=== PATIENT | female | born 1950 | race Caucasian/White ===

== ENCOUNTER → 2017-04-29 | Outpatient (CLI) | payer OTHER ==
--- NOTE | 2017-04-30 08:40 | REP ---
PET/CT: History: Diagnosing pulmonary nodule. Comparisons: Comparison chest CT January 27, 2017 from [facility]. TECHNIQUE: 1 hour 13 minutes following the intravenous injection of a 8.9 mCi dose of F-18 FDG, three-dimensional PET scintigraphy is acquired from the skull base to the proximal thighs. Triplanar noncontrast CT scanning is acquired through the same anatomic range for attenuation correction, and image registration with scan parameters optimized to minimize radiation exposure to the patient. PET scintigraphy and CT datasets were fused and displayed on a workstation with multiplanar and projection display capability. PET/CT Findings: There are extensive scattered foci of hypermetabolic uptake throughout the right chest with a few scattered nodular foci of hypermetabolic uptake in the left lung. The known large cavitary lesion in the right upper lobe distribution has hypermetabolic uptake around its periphery. Maximum standard uptake value ranging up to 5. There is new parenchymal opacification or infiltrate in the right lower lobe distribution posteriorly which shows mottled pattern of hypermetabolic uptake as well. This is a little more avid with maximum standard uptake value ranging up to 8.4. There are numerous bilateral pulmonary hypermetabolic nodules. One in the right lower lobe has maximum standard uptake value of 7.2. There are two somewhat spiculated nodules in the left lower lobe posteriorly which are hypermetabolic. Maximum standard uptake value in these is 3.8. There is uptake adjacent to the mediastinum in the right lower lobe but no definite hilar or mediastinal jovanna hypermetabolic uptake is seen. Severe COPD changes are noted along with cavitary opacification in the right upper lobe and extensive infiltrate in the right lower lobe with multiple pulmonary nodules again noted. No abnormal skeletal hypermetabolic uptake is seen. No abnormal adrenal uptake is seen. The head and neck soft tissues are unremarkable. No abnormal abdominal or pelvic hypermetabolic uptake is seen. There are multiple intrarenal calculi in the kidneys. There is a cyst in the left kidney. Impression: Extensive bilateral hypermetabolic infiltrates, cavitary lesions, and scattered bilateral pulmonary nodules in the right and to a lesser extent left thorax. Differential possibilities include tuberculosis and invasive fungal disease as well as metastatic pulmonary malignancy. There is no abnormal hypermetabolic uptake noted outside of the chest. Signed by Arnulfo Reilly MD 04/30/2017 04:04 P
== END ==
LOC: M PLARAD 13:13
PROVIDERS: ATTEND Family Medicine
DX: R91.1 Solitary pulmonary nodule (principal); R91.8 Other nonspecific abnormal finding of lung field

== ENCOUNTER → 2017-06-23 | Outpatient (REF) | payer OTHER ==
[2017-06-23 11:45] LABS: ALBUMIN 2.6 GM/DL (3.2-5.2); ALBUMIN/GLOBULIN RATIO 0.65 (1.00-1.93); ALKALINE PHOSPHATASE 85 U/L (45-117); ALT/SGPT 11 U/L (12-78); ANION GAP 11 MEQ/L (8-16); AST/SGOT 10 U/L (15-37); BILIRUBIN,TOTAL 0.3 MG/DL (0.2-1.0); BLOOD UREA NITROGEN 12 MG/DL (7-18); CALCIUM LEVEL 9.8 MG/DL (8.8-10.2); CARBON DIOXIDE LEVEL 30 MEQ/L (21-32); CHLORIDE LEVEL 100 MEQ/L (98-107); CREATININE FOR GFR 0.45 MG/DL (0.55-1.02); FREE T4 1.31 NG/DL (0.76-1.46); GLOMERULAR FILTRATION RATE > 60.0 (>45); GLUCOSE, FASTING 84 MG/DL (80-110); IMMUNOGLOBULIN G 1020 MG/DL (681-1648); IMMUNOGLOBULIN M 55.8 MG/DL (40-230); POTASSIUM SERUM 3.6 MEQ/L (3.5-5.1); SODIUM LEVEL 141 MEQ/L (136-145); THEOPHYLLINE LEVEL 15.3 UG/ML (10.0-20.0); TOTAL PROTEIN 6.6 GM/DL (6.4-8.2)
[2017-06-25 00:06] LABS: %CD3+CD4+CD8+ 2.8 % (Not Estab.); %CD3+CD4+CD8- 41.9 % (Not Estab.); %CD3+CD4-CD8+ 15.2 % (Not Estab.); %CD3+CD4-CD8- 0.5 % (Not Estab.); ABS CD3+CD4+CD8+ 17 /uL (Not Estab.); ABS CD3+CD4+CD8- 251 /uL (Not Estab.); ABS CD3+CD4-CD8+ 91 /uL (Not Estab.); ABS CD3+CD4-CD8- 3 /uL (Not Estab.); CD4/CD8 NYSDOH RATIO 2.76 (Not Estab.); Eosinophils 0 % (.); HCT 38.9 % (34.0-46.6); HGB 12.1 g/dL (11.1-15.9); Monocytes 3 % (.); Neutrophils 93 % (.); WBC 14.2 x10E3/uL (3.4-10.8)
[2017-06-25 08:07] LABS: IgG SERUM (part of Subclasses) 975 mg/dL (700-1600); IgG Subclass 1 671 mg/dL (248-810); IgG Subclass 2 192 mg/dL (130-555); IgG Subclass 3 95 mg/dL (15-102); IgG Subclass 4 6 mg/dL (2-96)
== END ==
LOC: M SFHCPLAZ 09:52
PROVIDERS: ATTEND Internal Medicine Infectious Disease
DX: A31.0 Pulmonary mycobacterial infection (principal); R64 Cachexia; J44.9 Chronic obstructive pulmonary disease, unspecified

== ENCOUNTER → 2017-08-06 | Outpatient (REF) | payer OTHER ==
[2017-08-06 13:22] LABS: BASO % 0.2 % (0.0-1.0); EOS % 0.1 % (0.0-3.0); IMMATURE GRANULOCYTE % 0.5 % (0-0); LYMPH # 0.3 10^3/uL (1.5-4.5); LYMPH % 1.9 % (24.0-44.0); MEAN CORPUSCULAR HGB CONC 29.8 g/dl (32.0-36.5); MEAN CORPUSCULAR VOLUME 80.4 fl (80.0-96.0); MONO # 0.5 10^3/uL (0.0-0.8); MONO % 2.9 % (0.0-5.0); NEUTROPHILS # 16.5 10^3/uL (1.8-7.7); NEUTROPHILS % 94.4 % (36.0-66.0); PLATELET COUNT, AUTOMATED 508 10^3/uL (150-450); RED CELL DISTRIBUTION WIDTH 15.6 % (11.5-14.5); WHITE BLOOD COUNT 17.5 10^3/uL (4.0-10.0)
[2017-08-06 14:07] LABS: ALBUMIN 2.7 GM/DL (3.2-5.2); ALBUMIN/GLOBULIN RATIO 0.59 (1.00-1.93); ALKALINE PHOSPHATASE 86 U/L (45-117); ALT/SGPT 10 U/L (12-78); ANION GAP 11 MEQ/L (8-16); AST/SGOT 15 U/L (15-37); BILIRUBIN,TOTAL 0.3 MG/DL (0.2-1.0); BLOOD UREA NITROGEN 11 MG/DL (7-18); CALCIUM LEVEL 9.2 MG/DL (8.8-10.2); CARBON DIOXIDE LEVEL 29 MEQ/L (21-32); CHLORIDE LEVEL 97 MEQ/L (98-107); CREATININE FOR GFR 0.46 MG/DL (0.55-1.02); GLOMERULAR FILTRATION RATE > 60.0 (>45); GLUCOSE, FASTING 104 MG/DL (80-110); POTASSIUM SERUM 4.2 MEQ/L (3.5-5.1); SODIUM LEVEL 137 MEQ/L (136-145); TOTAL PROTEIN 7.3 GM/DL (6.4-8.2)
== END ==
LOC: M SFHCPLAZ 10:47
PROVIDERS: ATTEND Internal Medicine Infectious Disease
DX: A31.0 Pulmonary mycobacterial infection (principal)

== ENCOUNTER 2017-09-15 12:51 | Inpatient (IN) | payer OTHER ==
[~2017-09-15] VITALS: Ht 154.9 cm; Wt 29.7 kg
[2017-09-15 14:06] LABS: BASO % 0.1 % (0.0-1.0); IMMATURE GRANULOCYTE % 0.4 % (0-0); LYMPH % 1.1 % (24.0-44.0); MEAN CORPUSCULAR HEMOGLOBIN 25.4 pg (27.0-33.0); MEAN CORPUSCULAR HGB CONC 31.2 g/dl (32.0-36.5); MEAN CORPUSCULAR VOLUME 81.5 fl (80.0-96.0); MONO # 0.5 10^3/uL (0.0-0.8); MONO % 2.9 % (0.0-5.0); NEUTROPHILS # 16.3 10^3/uL (1.8-7.7); NEUTROPHILS % 95.5 % (36.0-66.0); PLATELET COUNT, AUTOMATED 419 10^3/uL (150-450); RED CELL DISTRIBUTION WIDTH 18.1 % (11.5-14.5); WHITE BLOOD COUNT 17.1 10^3/uL (4.0-10.0)
[2017-09-15 14:27] LABS: LYMPH # 0.2 10^3/uL (1.5-4.5); POSITIVE DIFF POS FLAG
--- NOTE | 2017-09-15 14:34 | REP ---
AP PORTABLE CHEST: 09/15/2017 COMPARISON: 08/26/2017, 08/17/2017, 06/19/2017, 03/16/2017, CT chest 05/10/2017, PET CT 04/29/2017. CLINICAL HISTORY: Dyspnea and cough. FINDINGS: Lungs are severely hyperinflated with bullous emphysematous changes. Cavities in the right upper lung zone with much less consolidative opacity than on the CT chest in April. There have been improvements in these cavitary lesions with clearing of the infiltrates and fluid within many of the cavities. Some airspace opacity left mid lung zone and extensive scarring to the right hilum. I do not see definite effusion. There is some scarring in the left CP angle and both bases. Heart unchanged. The aorta is calcified at the arch, mildly tortuous but without aneurysm. Airway midline. IMPRESSION: 1. Diffuse severe COPD with fibrosis, emphysematous changes with bullous changes in both upper lung zones, along with right upper lobe cavitary lesions which have shown much improvement over the last 4 months but still with thickening of morales of many of these lesions in the right upper lobe. No effusion, cardiomegaly or edema. 2. Tortuous calcified aorta without aneurysm and a dextrorotatory curvature in the thoracic spine. Bones demineralized. 3. Heavier fibrotic changes and stranding towards the right hilum and left perihilar patchy density unchanged from multiple prior studies representing some significant scarring. Signed by Srinivas Salazar MD 09/15/2017 08:31 P
[2017-09-15 14:36] LABS: ANION GAP 6 MEQ/L (8-16); BLOOD UREA NITROGEN 15 MG/DL (7-18); CALCIUM LEVEL 8.9 MG/DL (8.8-10.2); CARBON DIOXIDE LEVEL 33 MEQ/L (21-32); CHLORIDE LEVEL 100 MEQ/L (98-107); CREATININE FOR GFR 0.52 MG/DL (0.55-1.02); GLOMERULAR FILTRATION RATE > 60.0 (>45); GLUCOSE, FASTING 98 MG/DL (80-110); SODIUM LEVEL 139 MEQ/L (136-145)
[2017-09-15] MEDS ORDERED: PERCOCET 5MG/325MG TAB PO ONE (15:15)
[2017-09-15] MEDS ORDERED: NS 500 ML IV ONE ×2 (15:15→17:00)
[2017-09-15] MEDS ORDERED: IPRATROPIUM 0.5MG/ALBUTEROL 2.5MG INH SOL UD 3ML (DUONEB)(J7620) NEB ONE (15:30)
[2017-09-15] MEDS ORDERED: ISOVUE-370 76% 100ML VIAL (Q9967) As Ordered ONE (15:36)
[2017-09-15 15:53] LABS: ABG BASE EXCESS 5.9 (-2.0-2.0); ABG HCO3 30.1 MEQ/L (22.0-26.0); ABG PARTIAL PRESSURE CO2 42.2 mmHg (35.0-45.0); ABG PARTIAL PRESSURE O2 101.1 mmHg (75.0-100.0); ABG STANDARD HCO3 29.8 MEQ/L (22.0-26.0); ABG TOTAL CO2 31.4 MEQ/L (23.0-31.0); ABG pH (ARTERIAL) 7.471 UNITS (7.350-7.450)
--- NOTE | 2017-09-15 16:26 | REP ---
CT Head without contrast HISTORY: Fall COMPARISON: None There is no intraparenchymal hemorrhage, acute infarct, mass or midline shift. The ventricular system and cortical sulci are dilated consistent with minimal volume loss. There is no extra cerebral collection. There is no fracture. A millimeter defect is present in the right parietal bone. This most likely represents a venous canchola. The visualized sinuses are clear. IMPRESSION: Minimal volume loss. Signed by Noe Michelle MD 09/15/2017 04:17 P
--- NOTE | 2017-09-15 16:38 | REP ---
RIGHT FOOT, FOUR VIEWS: HISTORY: Pain. There is no acute fracture or dislocation. The joint spaces are normal in appearance. An osteophyte is present on the posterior calcaneus. IMPRESSION: There is no acute fracture or dislocation. Signed by Noe Michelle MD 09/15/2017 04:49 P
--- NOTE | 2017-09-15 16:51 | REP ---
HISTORY: Dyspnea. COMPARISON: Multiple, the latest 05/10/2017, a noncontrast enhanced examination from [facility]. CONTRAST: 100 mL of Isovue-370 There is no significant change in the appearance of the mediastinum or pulmonary vj. No mass or adenopathy has developed, however, there is a stable borderline left suprahilar lymph node. It is better imaged on today's contrast enhanced examination compared to the latest prior noncontrast enhanced examination. There are no pleural or pericardial effusions. There is no significant change in the appearance of the imaged upper abdomen. There are bilateral nephroliths seen in conjunction with bilateral extrarenal pelves. There is further abdominal imaging on today's chest CT compared to the latest prior which shows an unchanged left renal cyst but evidence of mild right-sided hydronephrosis. The renal cyst is unchanged compared to 12/22/[address] from [facility], and the right-sided hydronephrosis has developed since that last exam as well. The imaged osseous structures are within normal limits. Evaluation of the lung shah again shows advanced bullous emphysematous changes with lung field hyperexpansion and scattered asymmetric densities. The area of consolidation seen previously in the right lower lobe with cavitation has improved, however, there is an area of asymmetric density with cavitation seen in the apical posterior segment of the left upper lobe which has increased in size and now measuring approximately 3 cm, previously 1.5. Increased asymmetric densities are also now seen in the left lower lobe. Of note is a conglomerate area measuring approximately 4.9 x 3 cm. IMPRESSION: 1. Advanced bullous emphysematous changes as described above and seen with waxing and waning areas of asymmetric density, consolidation, and cavitation. Neoplastic versus infectious etiology which needs to be correlated clinically with close followup, with particular attention drawn to the left lower lobe findings. 2. Imaged upper abdomen findings as described above. Mild right-sided hydronephrosis and partially imaged on this chest CT of uncertain etiology. The abdomen CT of 05/10/2017 was also reviewed and the findings of today represent a change from that prior exam as well, particularly involving the right sided hydronephrosis. 3. Other findings as described above. Signed by Harsh Meng DO 09/15/2017 04:58 P
[2017-09-15] MEDS ORDERED: LevoFLOXacin IV 500 MG in APPROPRIATE DILUENT 1 EA IV ONE (17:00)
[2017-09-15] MEDS ORDERED: NICOTINE 21MG/24HR 1 EA TRANSDERMAL TD ONE (17:45)
[2017-09-15] MEDS ORDERED: CLOT10TR MT (17:49)
[2017-09-15] MEDS ORDERED: COLA100C5 PO (17:49)
[2017-09-15] MEDS ORDERED: ETHA1TAB2 PO (17:49)
[2017-09-15] MEDS ORDERED: MEGE400SUS PO (17:49)
[2017-09-15] MEDS ORDERED: INCR1INH INH (17:49)
[2017-09-15] MEDS ORDERED: VENTAER INH (17:49)
[2017-09-15] MEDS ORDERED: ALEN70TA39 PO (17:49)
[2017-09-15] MEDS ORDERED: OXYC1TAB23 PO (17:49)
[2017-09-15] MEDS ORDERED: BREO1INH3 INH (17:49)
[2017-09-15] MEDS ORDERED: IPRASOL4 INH (17:49)
[2017-09-15] MEDS ORDERED: FLON1SPR (17:49)
[2017-09-15] MEDS ORDERED: LORA10TA2 PO (17:49)
[2017-09-15] MEDS ORDERED: PRED10TA2 PO (17:49)
[2017-09-15] MEDS ORDERED: OXYB5TAB10 PO (17:49)
[2017-09-15] MEDS ORDERED: RIFA300C3 PO (17:49)
[2017-09-15] MEDS ORDERED: ONDA4TAB6 SL (17:49)
[2017-09-15] MEDS ORDERED: THEO1TAB4 PO (17:49)
[2017-09-15] MEDS ORDERED: OMEP40CA2 PO (17:49)
[2017-09-15] MEDS ORDERED: FLUTICASONE PROP 0.05% NASAL SPRAY 16 GM (FLONASE) PRN (19:15)
[2017-09-15 20:00] VITALS: BP 154/85
--- NOTE | 2017-09-15 20:39 | HPEPDOC ---
[facility] Medical History & Physical Date of Admission Sep 15, 2017 Primary Care Physician: A Other Provider PCP: Dr. Infante ([place]) Infectious Diseases: Dr. Blunt Pulmonology: Dr. Frazier Urology: Dr. Lazcano Attending Physician: RAY GRANT MD History and Physical CODE STATUS: Full Code according to patient CHIEF COMPLAINT: [Increasing shortness of breath] HISTORY OF PRESENT ILLNESS: [66-year-old female seen in the emergency department today for increasing shortness of breath for the last 2-3 weeks felt that she is been sick with little to no improvement. She has had fevers, chills and rigors at home. She is also had productive sputum with cough. No hemoptysis. She relates having dyspnea on exertion with the slightest activity. He sees Dr. Blunt and Dr. Frazier for her recent MAC pneumonia. And tonight she feels that due to her weakness and increased shortness of breath, productive sputum, chest congestion. She did not feel that she could return home from the emergency department. Therefore, hospitalist was called for admission. Additionally, she has had a couple mechanical falls due to her shortness of breath and lightheadedness without loss of consciousness. PET scan and April 2017: Extensive bilateral hypermetabolic infiltrates, cavitary lesions, and scattered bilateral pulmonary nodules in the right and to a lesser extent left thorax. Differential possibilities include tuberculosis and invasive fungal disease as well as metastatic pulmonary malignancy. There is no abnormal hypermetabolic uptake noted outside of the chest.] PAST MEDICAL HISTORY: DIVERTICULITIS COPD/ASTHMA GERD HTN RECURRENT NEPHROLITHIASIS HISTORY OF OBSTRUCTIVE SLEEP APNEA OSTEOPOROSIS WITH COMPRESSION FRACTURES TOBACCO ABUSE MYCOBACTERIUM AVIUM COMPLEX CT FINDINGS WITH MULTIPLE PULMONARY NODULES AND CAVITARY LESION SCAN -04/2017 PAST SURGICAL HISTORY: MULTIPLE ESWL'S TUBAL LIGATION X3 SOCIAL HISTORY: Currently smokes 6-10 cigarettes per day for many years. Has been counseled to d /c smoking. Denies current EtOH use or IVDU. No recent travel or sick contacts. FAMILY HISTORY: FATHER: , HEART FAILURE MOTHER: , COPD 3 BROTHER(S) , 4 SISTER(S) - HEALTHY. 2 SON(S) , 2 DAUGHTER(S) - HEALTHY. STRONG FAMILY HX KIDNEY STONES.NO KNOWN HISTORY OF UROLOGICALLY RELATED CANCERS. ALLERGIES: Please see below. REVIEW OF SYSTEMS: CONSTITUTIONAL: [place] for fevers, chills and rigors. Decreased appetite and noted weakness with questionable weight loss. HEENT: No headache, lightheadedness, blurred or loss of vision. No difficulty with speech or swallow. CARDIOVASCULAR: No chest pain, palpitations, paroxysmal nocturnal dyspnea or lower extremity edema RESPIRATORY: Productive cough/sputum with wheeze and increased shortness of breath. She denies Hemoptysis GENITOURINARY: No dysuria, frequency, or discharge MUSCULOSKELETAL: Generalized weakness with no bone, muscle or joint pain. GASTROINTESTINAL: No Nausea, vomiting. Bowel movements are regular without hematochezia or melena. No bladder or bowel incontinence. SKIN: No complaint of lesions, abrasions or rashes NEUROLOGICAL: No blurred vision, headaches, paraesthesias or paralysis PSYCHIATRIC: No depression, anxiety, audiovisual hallucinations. No suicidal ideations. ENDOCRINE: Denies history of diabetes or thyroid disorder. No history of endocrine abnormalities. HEMATOLOGIC/LYMPHATIC: No lumps, bumps or swelling of neck, axilla or groin. No night sweats or weight loss. HOME MEDICATIONS: Please see below. PHYSICAL EXAMINATION: VITAL SIGNS: Please see below. GENERAL: NAD, A&OX3, Pleasant HEENT: PERRLA, throat clear, neck supple, no JVD CARDIOVASCULAR: RRR RESPIRATORY: Increased AP diameter is noted. Diminished bibasilar breath sounds with faint expiratory wheeze. ABDOMINAL: soft, NT/ND normoactive bowel sounds EXTREMITIES: no edema/no calf tenderness NEUROLOGICAL: CN'S II-XII grossly intact PSYCHOLOGICAL: negative SKIN: stage II skin breakdown over coccyx LABORATORY DATA: See below. IMAGING: Head CT without contrast: Normal volume loss without acute findings. 4 view x-ray of right foot: No acute fracture or dislocation. Chest CT with contrast: 1. Advanced bullous emphysematous changes as described above and seen with waxing and waning areas of asymmetric density, consolidation, and cavitation. Neoplastic versus infectious etiology which needs to be correlated clinically with close followup, with particular attention drawn to the left lower lobe findings. 2. Imaged upper abdomen findings as described above. Mild right-sided hydronephrosis and partially imaged on this chest CT of uncertain etiology. The abdomen CT of 05/10/2017 was also reviewed and the findings of today represent a change from that prior exam as well, particularly involving the right sided hydronephrosis. MICROBIOLOGY: Please see below. 12 LEAD ECG: Sinus Tachycardia with abhorrent PVC. Ventricular rate 110. no acute t wave abnormality. (computer generated read suggested a fib, however distinct p-waves are noted in all leads and associated with qrs) IMPRESSION: 36-year-old female with increasing shortness of breath, dyspnea on exertion, productive sputum CT findings suggestive of cradle/infectious process versus neoplasm, possibly causing postobstructive pneumonia. PROBLEM LIST: 1. Acute hypoxic respiratory failure. 2. Leukocytosis with lactic acidosis and likely sepsis 3. Pneumonia (community-acquired versus MAC versus neoplasm causing postobstructive pneumonia) 4. Mycobacterium Avium Complex with recent treatment and followed outpatient by Dr. Blunt/Dr. Frazier 5. Stage II decubitus over coccyx COPD/asthma. 6. Hypertension. 7. GERD. 8. Tobacco use. Encourage smoking cessation. 9. History of diverticulitis, not currently problematic. 10. Prior history of obstructive sleep apnea PLAN: She will be admitted to [facility] on remote telemetry. Her lactic acidosis did respond to IV normal saline bolus and repeat lactic acid was negative. She was started on IV Zosyn. We'll obtain a culture, sputum cultures as well sputum for AFB. Solumedrol, duonebs, and acapella. Continue home medications. Will add on liver profile due to current use of Rifampin and Ethambutol. ( related to MAC treatment) Spoke to ID regarding Antibiotics and sputum collection for AFB. Consult placed for Dr. Blunt to see patient on her next rounding day. Foam dressing for coccyx and wound care nursing consult. PT/OT eval and treat. PFS Consult. DVT PROPHYLAXIS: Subcutaneous heparin DISPOSITION: Likely greater than 2 midnights Vital Signs Vital Signs Date Time Temp Pulse Resp B/P (MAP) Pulse Ox O2 Delivery O2 Flow Rate FiO2 09/15/17 19:15 86 151/76 (101) 09/15/17 18:15 91 09/15/17 16:20 22 09/15/17 12:52 98.7 Nasal Cannula 4.0 Laboratory Data Labs 24H Laboratory Tests 2 09/15/17 13:53: Immature Granulocyte % (Auto) 0.4H, White Blood Count 17.1H, Red Blood Count 4.92, Hemoglobin 12.5, Hematocrit 40.1, Mean Corpuscular Volume 81.5, Mean Corpuscular Hemoglobin 25.4L, Mean Corpuscular Hemoglobin Concent 31.2L, Red Cell Distribution Width 18.1H, Platelet Count 419, Neutrophils (%) (Auto) 95.5H , Lymphocytes (%) (Auto) 1.1L, Monocytes (%) (Auto) 2.9, Eosinophils (%) (Auto) 0.0, Basophils (%) (Auto) 0.1, Neutrophils # (Auto) 16.3H, Lymphocytes # (Auto) 0.2L, Monocytes # (Auto) 0.5, Eosinophils # (Auto) 0.0, Basophils # (Auto) 0.0, Immature Granulocyte # (Auto) 0.1H, Nucleated Red Blood Cells % (auto) 0.0, Anion Gap 6L, Glomerular Filtration Rate > 60.0, Lactic Acid Level 3.0*H, Blood Urea Nitrogen 15, Creatinine 0.52L, Sodium Level 139, Potassium Level 4.0, Chloride Level 100, Carbon Dioxide Level 33H, Calcium Level 8.9, OV-Iwu-I-Type Natriuretic Peptide 890H 09/15/17 15:42: Blood Gas Bicarbonate Standard 29.8H, Arterial Blood pH 7.471H, Arterial Blood Partial Pressure CO2 42.2, Arterial Blood Partial Pressure O2 101.1H, Arterial Blood Total CO2 31.4H, Arterial Blood HCO3 30.1H, Arterial Blood Base Excess 5.9H, Arterial Blood Oxygen Saturation 98.2 09/15/17 19:43: Lactic Acid Followup at 4 Hours 1.9 CBC/BMP Laboratory Tests 09/15/17 13:53 Red Blood Count 4.92, Mean Corpuscular Volume 81.5, Mean Corpuscular Hemoglobin 25.4 L, Mean Corpuscular Hemoglobin Concent 31.2 L, Red Cell Distribution Width 18.1 H, Neutrophils (%) (Auto) 95.5 H, Lymphocytes (%) (Auto) 1.1 L, Monocytes ( %) (Auto) 2.9, Eosinophils (%) (Auto) 0.0, Basophils (%) (Auto) 0.1, Neutrophils # (Auto) 16.3 H, Lymphocytes # (Auto) 0.2 L, Monocytes # (Auto) 0.5 , Eosinophils # (Auto) 0.0, Basophils # (Auto) 0.0, Calcium Level 8.9 Microbiology Microbiology 09/15/17 Influenza Virus Type A Antigen - Final, Complete 09/15/17 Influenza Virus Type B Antigen - Final, Complete Home Medications Scheduled (Incruse Ellipta) 62.5 Mcg/Inh Inh, 1 PUFF INH DAILY Alendronate Sodium (Alendronate Sodium) 70 Mg Tab, 70 MG PO ASDIRECTED MONDAYS Clotrimazole (Clotrimazole) 10 Mg Troc, 10 MG MT TID Docusate Sodium (Colace) 100 Mg Cap, 100 MG PO DAILY Ethambutol HCl (Ethambutol HCl) 400 Mg Tab, 400 MG PO DAILY Fluticasone/Vilanterol (Breo Ellipta 200-25 Mcg/INH) 1 Inh Inh, 1 PUFF INH DAILY Loratadine (Loratadine) 10 Mg Tab, 10 MG PO DAILY Megestrol Acetate (Megestrol Acetate) 400 Mg/10 Ml Jenny, 400 MG PO BID Omeprazole (Omeprazole) 40 Mg Cap, 40 MG PO BID Oxybutynin Chloride (Oxybutynin Chloride) 5 Mg Tab, 5 MG PO BID Prednisone (Prednisone) 10 Mg Tab, 10 MG PO DAILY Rifampin (Rifampin) 300 Mg Cap, 600 MG PO DAILY Theophylline (Theophylline ER) 300 Mg Tabcr, 300 MG PO BID Scheduled PRN (Flonase Allergy Relief) 50 Mcg/Act Spr, 1 SPRAY NA DAILY PRN for ALLERGIES Albuterol Sulfate (Ventolin Hfa) 108 Mcg/Act Aer, 2 PUFFS INH QID PRN for SHORTNESS OF BREATH Albuterol/Ipratropium (Ipratropium [place]/Albut 0.5-2.5 (3) mg/3Ml) 1 Jose Alejandro Jose Alejandro, 1 JOSE ALEJANDRO INH QID PRN for SHORTNESS OF BREATH Ondansetron (Ondansetron Odt) 4 Mg Tab, 4 MG SL Q8H PRN for NAUSEA Oxycodone/Acetaminophen (Oxycodone/Acetaminophen 5-325 mg) 1 Tab Tab, 1.5 TAB PO Q6H PRN for PAIN Allergies Coded Allergies: Erythromycin (Verified Allergy, Mild, Unknown, 09/15/17) Macrolides and Ketolides (Verified Allergy, Mild, Unknown, 09/15/17) Morphine and Related (Verified Allergy, Mild, Unknown, 09/15/17) Quinolones (Verified Allergy, Mild, Unknown, 09/15/17) Sulfa Antibiotics (Verified Allergy, Mild, Unknown, 09/15/17) TRIPP HENRY DO Sep 15, 2017 20:39
[2017-09-15 21:29] LABS: ALBUMIN 2.8 GM/DL (3.2-5.2); ALBUMIN/GLOBULIN RATIO 0.72 (1.00-1.93); ALKALINE PHOSPHATASE 72 U/L (45-117); ALT/SGPT 10 U/L (12-78); AST/SGOT 18 U/L (7-37); BILIRUBIN,DIRECT 0.1 MG/DL (0.0-0.2); BILIRUBIN,TOTAL 0.4 MG/DL (0.2-1.0); TOTAL PROTEIN 6.7 GM/DL (6.4-8.2)
[2017-09-15] MEDS: PERCOCET 5MG/325MG TAB PO PRN (22:14)
[2017-09-15] MEDS: MEGESTROL SUSP 400 MG/10 ML UDC PO SCH (22:17)
[2017-09-15] MEDS: methylPREDNISolone INJ 125 MG/2 ML VIAL (J2930) IV SCH (22:17)
[2017-09-15] MEDS: CLOTRIMAZOLE 10 MG TROCHE MT SCH (22:18)
[2017-09-15] MEDS: oxyBUTYnin 5 MG TAB PO SCH (22:18)
[2017-09-15] MEDS: OMEPRAZOLE 20 MG CAP PO SCH (22:19)
[2017-09-15] MEDS: HEPARIN SOD (PORCINE) 5000 UNITS/ML VIAL SC SCH (22:19)
[2017-09-15] MEDS: DOCUSATE SODIUM 100 MG CAP PO SCH (22:19)
[2017-09-15] MEDS: PIPERACILLIN/TAZOBACTAM SOD 3.375 GM in APPROPRIATE DILUENT 1 EA IV SCH (22:19)
[2017-09-15] MEDS: IPRATROPIUM 0.5MG/ALBUTEROL 2.5MG INH SOL UD 3ML (DUONEB)(J7620) NEB SCH (23:12)
[2017-09-16] VITALS: BP 127/77
[2017-09-16] MEDS: IPRATROPIUM 0.5MG/ALBUTEROL 2.5MG INH SOL UD 3ML (DUONEB)(J7620) NEB SCH ×4 (01:40→15:43)
[2017-09-16 04:00] VITALS: BP 136/91
[2017-09-16] MEDS: HEPARIN SOD (PORCINE) 5000 UNITS/ML VIAL SC SCH ×3 (05:37→20:28)
[2017-09-16] MEDS: PERCOCET 5MG/325MG TAB PO PRN ×3 (05:37→20:27)
[2017-09-16] MEDS: PIPERACILLIN/TAZOBACTAM SOD 3.375 GM in APPROPRIATE DILUENT 1 EA IV SCH ×3 (05:37→20:28)
[2017-09-16 06:08] LABS: MEAN CORPUSCULAR VOLUME 83.3 fl (80.0-96.0); PLATELET COUNT, AUTOMATED 407 10^3/uL (150-450); RED CELL DISTRIBUTION WIDTH 18.2 % (11.5-14.5); WHITE BLOOD COUNT 11.1 10^3/uL (4.0-10.0)
[2017-09-16 06:26] LABS: ANION GAP 6 MEQ/L (8-16); BLOOD UREA NITROGEN 14 MG/DL (7-18); CALCIUM LEVEL 8.8 MG/DL (8.8-10.2); CARBON DIOXIDE LEVEL 32 MEQ/L (21-32); CHLORIDE LEVEL 105 MEQ/L (98-107); CREATININE FOR GFR 0.53 MG/DL (0.55-1.02); GLOMERULAR FILTRATION RATE > 60.0 (>45); GLUCOSE, FASTING 114 MG/DL (80-110); POTASSIUM SERUM 3.8 MEQ/L (3.5-5.1); SODIUM LEVEL 143 MEQ/L (136-145)
--- NOTE | 2017-09-16 06:53 | ECGEPIP ---
Stationary ECG Study [facility] - ED Test Date: 2017-09-15 Pat Name: MEGAN PEARSON Department: Room: - Gender: F Slate Trimmer: tami : 1950 Requested By: MOISES Mejia Order Number: [id number] Reading MD: Kiel Humphreys Measurements Intervals [place] Rate: 110 P: GA: 0 QRS: -1 QRSD: 71 T: 0 QT: 245 QTc: 332 Interpretive Statements ATRIAL FIBRILLATION WITH RAPID VENTRICULAR RESPONSE NONSPECIFIC T-WAVE ABNORMALITY NO PRIORS FOR COMPARISON Electronically Signed On 09-16-2017 6:53:33 EST by Kiel Humphreys
[2017-09-16] MEDS: INCRUSE ELLIPTA 62.5 MCG INH SCH (08:46)
[2017-09-16] MEDS: BREO ELIPTA INH SCH (08:46)
[2017-09-16] MEDS ORDERED: THEOPHYLLINE 300 MG PO SCH (09:00)
[2017-09-16] MEDS ORDERED: RIFAMPIN 600 MG PO SCH (09:00)
[2017-09-16] MEDS: OMEPRAZOLE 20 MG CAP PO SCH ×2 (09:20→20:26)
[2017-09-16] MEDS: DOCUSATE SODIUM 100 MG CAP PO SCH ×2 (09:20→20:25)
[2017-09-16] MEDS: methylPREDNISolone INJ 125 MG/2 ML VIAL (J2930) IV SCH (09:20)
[2017-09-16] MEDS: LORATADINE 10 MG TAB PO SCH (09:20)
[2017-09-16] MEDS: ETHAMBUTOL 400MG TAB PO SCH (09:21)
[2017-09-16] MEDS: MEGESTROL SUSP 400 MG/10 ML UDC PO SCH ×2 (09:21→20:26)
[2017-09-16] MEDS: CLOTRIMAZOLE 10 MG TROCHE MT SCH ×3 (09:21→20:29)
[2017-09-16] MEDS: oxyBUTYnin 5 MG TAB PO SCH ×2 (09:21→20:26)
[2017-09-16] MEDS: RIFAMPIN 300 MG PO SCH (09:23)
[2017-09-16] MEDS: THEOPHYLLINE 300 MG PO SCH ×2 (09:47→20:29)
--- NOTE | 2017-09-16 12:59 | IPNPDOC ---
Subjective Date Seen The patient was seen on 09/16/17. Subjective Chief Complaint/HPI The patient is a 66-year-old female admitted with a reason for visit of Pneumonia; Sob. Events since last encounter Feels much better this am. Sob has improved. Appetite better this am was able to have 100% of her breakfast tray. Feels less weak and more her usual self. No fever or chills, no chest pain, no nausea or vomiting or diarrhea Objective Physical Examination General Exam: Positive: Alert, Cooperative, No Acute Distress Eye Exam: Positive: PERRLA, Conjunctiva & lids normal, EOMI, Negative: Sclera icteric ENT Exam: Positive: Atraumatic, Mucous membr. moist/pink, Pharynx Normal Neck Exam: Positive: Supple, Negative: JVD, thyromegaly Chest Exam: Positive: Clear to auscultation, Diminished Heart Exam: Positive: Rate Normal, Regular Rhythm, Normal S1, Normal S2, Negative: Murmurs, Rubs Abdomen Exam: Positive: Normal bowel sounds, Soft, Negative: Tenderness, Hepatospenomegaly Extremity Exam: Positive: Normal pulses, Negative: Clubbing, Cyanosis, Edema Skin Exam: Positive: Nl turgor and temperature, Negative: Rash, Breakdown Assessment /Plan Problems (1) Sepsis Status: Acute Problem Text: from pneumonia. (2) Pneumonia Status: Acute Problem Text: Either CAP or worsening of MAC consult ID. will continue with zosyn, Rifampicin , INH and ethambutol (3) COPD with asthma Status: Chronic Problem Text: Will continue with Breo and Incruse. with acute exacerbation will continue with nebs and steroids. (4) Chronic respiratory failure with hypoxia Status: Chronic Problem Text: Uses 4 liters of oxygen at home. (5) Severe protein-calorie malnutrition Status: Chronic Problem Text: Has lost about 50 lbs in the past year. (6) History of MAC infection Status: Acute Problem Text: will continue with home medications. (7) Nephrolithiasis Status: Chronic Problem Text: with h/o multiple ESWLs (8) RACHEL (obstructive sleep apnea) Status: Chronic (9) Hypertension Status: Chronic (10) GERD (gastroesophageal reflux disease) Status: Chronic (11) History of vertebral compression fracture Status: Chronic Problem Text: due to osteoparesis. (12) Decubital ulcer Status: Acute Problem Text: stage 2 (13) Overactive bladder Status: Chronic Problem Text: continue ditropan (14) Thrush, oral Status: Acute Problem Text: continue clotrimazole Plan/VTE VTE Prophylaxis Ordered?: Yes VS, I&O, 24H, Fishbone Vital Signs/I&O Vital Signs Date Time Temp Pulse Resp B/P (MAP) Pulse Ox O2 Delivery O2 Flow Rate FiO2 09/16/17 08:47 85 16 09/16/17 07:56 Nasal Cannula 4.0 09/16/17 04:00 98.1 136/91 (106) 93 I&O- Last 24 Hours up to 6 AM 09/17/17 06:00 Intake Total 990 ml Balance 990 ml Laboratory Data 24H LABS Laboratory Tests 2 09/15/17 13:53: Immature Granulocyte % (Auto) 0.4H, White Blood Count 17.1H, Red Blood Count 4.92, Hemoglobin 12.5, Hematocrit 40.1, Mean Corpuscular Volume 81.5, Mean Corpuscular Hemoglobin 25.4L, Mean Corpuscular Hemoglobin Concent 31.2L, Red Cell Distribution Width 18.1H, Platelet Count 419, Neutrophils (%) (Auto) 95.5H , Lymphocytes (%) (Auto) 1.1L, Monocytes (%) (Auto) 2.9, Eosinophils (%) (Auto) 0.0, Basophils (%) (Auto) 0.1, Neutrophils # (Auto) 16.3H, Lymphocytes # (Auto) 0.2L, Monocytes # (Auto) 0.5, Eosinophils # (Auto) 0.0, Basophils # (Auto) 0.0, Immature Granulocyte # (Auto) 0.1H, Nucleated Red Blood Cells % (auto) 0.0, Anion Gap 6L, Glomerular Filtration Rate > 60.0, Lactic Acid Level 3.0*H, Blood Urea Nitrogen 15, Creatinine 0.52L, Sodium Level 139, Potassium Level 4.0, Chloride Level 100, Carbon Dioxide Level 33H, Calcium Level 8.9, Aspartate Amino Transf (AST/SGOT) 18, Alanine Aminotransferase (ALT/SGPT) 10L, Alkaline Phosphatase 72, Total Bilirubin 0.4, Direct Bilirubin 0.1, CU-Nwg-C-Type Natriuretic Peptide 890H, Total Protein 6.7, Albumin 2.8L, Albumin/Globulin Ratio 0.72L 09/15/17 15:42: Blood Gas Bicarbonate Standard 29.8H, Arterial Blood pH 7.471H, Arterial Blood Partial Pressure CO2 42.2, Arterial Blood Partial Pressure O2 101.1H, Arterial Blood Total CO2 31.4H, Arterial Blood HCO3 30.1H, Arterial Blood Base Excess 5.9H, Arterial Blood Oxygen Saturation 98.2 09/15/17 19:43: Lactic Acid Followup at 4 Hours 1.9 09/16/17 05:33: Nucleated Red Blood Cells % (auto) 0.0, Anion Gap 6L, Glomerular Filtration Rate > 60.0, Blood Urea Nitrogen 14, Creatinine 0.53L, Sodium Level 143, Potassium Level 3.8, Chloride Level 105, Carbon Dioxide Level 32, Calcium Level 8.8 CBC/BMP Laboratory Tests 09/15/17 13:53 Red Blood Count 4.92, Mean Corpuscular Volume 81.5, Mean Corpuscular Hemoglobin 25.4 L, Mean Corpuscular Hemoglobin Concent 31.2 L, Red Cell Distribution Width 18.1 H, Neutrophils (%) (Auto) 95.5 H, Lymphocytes (%) (Auto) 1.1 L, Monocytes ( %) (Auto) 2.9, Eosinophils (%) (Auto) 0.0, Basophils (%) (Auto) 0.1, Neutrophils # (Auto) 16.3 H, Lymphocytes # (Auto) 0.2 L, Monocytes # (Auto) 0.5 , Eosinophils # (Auto) 0.0, Basophils # (Auto) 0.0, Calcium Level 8.9 09/16/17 05:33 Red Blood Count 4.48, Mean Corpuscular Volume 83.3, Mean Corpuscular Hemoglobin 25.0 L, Mean Corpuscular Hemoglobin Concent 30.0 L, Red Cell Distribution Width 18.2 H, Calcium Level 8.8 Microbiology Microbiology 09/16/17 Acid Fast Stain, Received Pending 09/16/17 Mycobacterial Culture, Received Pending 09/16/17 Gram Stain, Received Pending 09/16/17 Sputum Culture, Received Pending 09/15/17 Influenza Virus Type A Antigen - Final, Complete 09/15/17 Influenza Virus Type B Antigen - Final, Complete RAY GRANT MD Sep 16, 2017 12:59
[2017-09-16 14:00] VITALS: BP 151/82
[2017-09-16 16:30] VITALS: BP 132/72
[2017-09-16] MEDS: IPRATROPIUM 0.5MG/ALBUTEROL 2.5MG INH SOL UD 3ML (DUONEB)(J7620) NEB PRN (20:21)
[2017-09-16] MEDS: ONDANSETRON 4 MG ORAL DISINTEGRATING TAB (S0181) SL PRN (20:25)
[2017-09-16] MEDS: methylPREDNISolone INJ 40 MG/1 ML VIAL (J2920) IV SCH (20:27)
[2017-09-16 22:00] VITALS: BP 166/71
[2017-09-17] MEDS: IPRATROPIUM 0.5MG/ALBUTEROL 2.5MG INH SOL UD 3ML (DUONEB)(J7620) NEB SCH ×4 (00:30→23:27)
[2017-09-17] MEDS: PERCOCET 5MG/325MG TAB PO PRN ×3 (02:28→18:02)
[2017-09-17 06:00] VITALS: BP 148/96
[2017-09-17] MEDS: HEPARIN SOD (PORCINE) 5000 UNITS/ML VIAL SC SCH ×3 (06:19→22:00)
[2017-09-17] MEDS: PIPERACILLIN/TAZOBACTAM SOD 3.375 GM in APPROPRIATE DILUENT 1 EA IV SCH ×3 (06:19→22:54)
[2017-09-17 07:53] LABS: MEAN CORPUSCULAR HEMOGLOBIN 25.2 pg (27.0-33.0); MEAN CORPUSCULAR HGB CONC 30.9 g/dl (32.0-36.5); MEAN CORPUSCULAR VOLUME 81.7 fl (80.0-96.0); PLATELET COUNT, AUTOMATED 431 10^3/uL (150-450); RED CELL DISTRIBUTION WIDTH 18.1 % (11.5-14.5)
[2017-09-17 08:10] LABS: ANION GAP 9 MEQ/L (8-16); BLOOD UREA NITROGEN 14 MG/DL (7-18); CALCIUM LEVEL 8.4 MG/DL (8.8-10.2); CARBON DIOXIDE LEVEL 29 MEQ/L (21-32); CHLORIDE LEVEL 103 MEQ/L (98-107); CREATININE FOR GFR 0.48 MG/DL (0.55-1.02); GLOMERULAR FILTRATION RATE > 60.0 (>45); GLUCOSE, FASTING 76 MG/DL (80-110); POTASSIUM SERUM 3.9 MEQ/L (3.5-5.1); SODIUM LEVEL 141 MEQ/L (136-145)
[2017-09-17] MEDS: LORATADINE 10 MG TAB PO SCH (08:40)
[2017-09-17] MEDS: CLOTRIMAZOLE 10 MG TROCHE MT SCH ×3 (08:40→21:00)
[2017-09-17] MEDS: methylPREDNISolone INJ 40 MG/1 ML VIAL (J2920) IV SCH ×2 (08:40→22:54)
[2017-09-17] MEDS: ETHAMBUTOL 400MG TAB PO SCH (08:41)
[2017-09-17] MEDS: MEGESTROL SUSP 400 MG/10 ML UDC PO SCH ×2 (08:41→22:53)
[2017-09-17] MEDS: DOCUSATE SODIUM 100 MG CAP PO SCH ×2 (08:41→22:53)
[2017-09-17] MEDS: oxyBUTYnin 5 MG TAB PO SCH ×2 (08:41→22:53)
[2017-09-17] MEDS: OMEPRAZOLE 20 MG CAP PO SCH ×2 (08:41→22:53)
[2017-09-17] MEDS: RIFAMPIN 300 MG PO SCH (08:42)
[2017-09-17] MEDS: THEOPHYLLINE 300 MG PO SCH ×2 (08:42→21:00)
[2017-09-17] MEDS: ONDANSETRON 4 MG ORAL DISINTEGRATING TAB (S0181) SL PRN (08:54)
[2017-09-17] MEDS: IPRATROPIUM 0.5MG/ALBUTEROL 2.5MG INH SOL UD 3ML (DUONEB)(J7620) NEB PRN ×2 (11:09→17:59)
[2017-09-17] MEDS: INCRUSE ELLIPTA 62.5 MCG INH SCH (11:10)
[2017-09-17] MEDS: BREO ELIPTA INH SCH (11:10)
--- NOTE | 2017-09-17 12:28 | IPNPDOC ---
Subjective Date Seen The patient was seen on 09/17/17. Subjective Chief Complaint/HPI The patient is a 66-year-old female admitted with a reason for visit of Pneumonia; Sob. Events since last encounter feels very weak and tired, continues to have cough with expectoration and Shortness of breath continues to be worse than usual. no ffever or chills, says eating better, no nausea or vomiting or diarrhea. Objective Physical Examination General Exam: Positive: Alert, Cooperative, No Acute Distress Eye Exam: Positive: PERRLA, Conjunctiva & lids normal, EOMI, Negative: Sclera icteric ENT Exam: Positive: Atraumatic, Mucous membr. moist/pink, Pharynx Normal Neck Exam: Positive: Supple, Negative: JVD, thyromegaly Chest Exam: Positive: Clear to auscultation, Diminished Heart Exam: Positive: Rate Normal, Regular Rhythm, Normal S1, Normal S2, Negative: Murmurs, Rubs Abdomen Exam: Positive: Normal bowel sounds, Soft, Negative: Tenderness, Hepatospenomegaly Extremity Exam: Positive: Normal pulses, Negative: Clubbing, Cyanosis, Edema Skin Exam: Positive: Nl turgor and temperature, Negative: Rash, Breakdown Assessment /Plan Problems (1) Sepsis Status: Acute Problem Text: from pneumonia. (2) Pneumonia Status: Acute Problem Text: Either CAP or worsening of MAC consult ID. will continue with zosyn, Rifampicin , INH and ethambutol (3) COPD with asthma Status: Chronic Problem Text: Will continue with Breo and Incruse. with acute exacerbation will continue with nebs and steroids. (4) Chronic respiratory failure with hypoxia Status: Chronic Problem Text: Uses 4 liters of oxygen at home. (5) Severe protein-calorie malnutrition Status: Chronic Problem Text: Patient is cachectic and severely malnourished. Has lost about 50 lbs in the past year. (6) History of MAC infection Status: Acute Problem Text: will continue with home medications. (7) Nephrolithiasis Status: Chronic Problem Text: with h/o multiple ESWLs (8) RACHEL (obstructive sleep apnea) Status: Chronic (9) Hypertension Status: Chronic (10) GERD (gastroesophageal reflux disease) Status: Chronic (11) History of vertebral compression fracture Status: Chronic Problem Text: due to osteoparesis. (12) Decubital ulcer Status: Acute Problem Text: stage 2 (13) Overactive bladder Status: Chronic Problem Text: continue ditropan (14) Thrush, oral Status: Acute Problem Text: continue clotrimazole Plan/VTE VTE Prophylaxis Ordered?: Yes VS, I&O, 24H, Fishbone Vital Signs/I&O Vital Signs Date Time Temp Pulse Resp B/P (MAP) Pulse Ox O2 Delivery O2 Flow Rate FiO2 09/17/17 08:38 20 Nasal Cannula 4.0 09/17/17 06:00 100.1 98 148/96 (113) 95 I&O- Last 24 Hours up to 6 AM 09/18/17 06:00 Intake Total 360 ml Balance 360 ml Laboratory Data 24H LABS Laboratory Tests 2 09/17/17 06:07: Nucleated Red Blood Cells % (auto) 0.0, Anion Gap 9, Glomerular Filtration Rate > 60.0, Blood Urea Nitrogen 14, Creatinine 0.48L, Sodium Level 141, Potassium Level 3.9, Chloride Level 103, Carbon Dioxide Level 29, Calcium Level 8.4L CBC/BMP Laboratory Tests 09/17/17 06:07 Red Blood Count 4.48, Mean Corpuscular Volume 81.7, Mean Corpuscular Hemoglobin 25.2 L, Mean Corpuscular Hemoglobin Concent 30.9 L, Red Cell Distribution Width 18.1 H, Calcium Level 8.4 L Microbiology Microbiology 09/16/17 Acid Fast Stain - Final, Resulted 09/16/17 Mycobacterial Culture, Resulted Pending 09/16/17 Gram Stain - Final, Resulted 09/16/17 Sputum Culture, Resulted Pending 09/15/17 Influenza Virus Type A Antigen - Final, Complete 09/15/17 Influenza Virus Type B Antigen - Final, Complete RAY GRANT MD Sep 17, 2017 12:28
[2017-09-17 14:00] VITALS: BP 150/90
[2017-09-17] MEDS: NICOTINE 14 MG/24 HR TRANSDERMAL TD SCH (15:27)
[2017-09-17 20:50] VITALS: BP 141/85
[2017-09-18] MEDS: IPRATROPIUM 0.5MG/ALBUTEROL 2.5MG INH SOL UD 3ML (DUONEB)(J7620) NEB PRN ×2 (03:53→19:18)
[2017-09-18 05:22] VITALS: BP 146/86
[2017-09-18 05:58] LABS: MEAN CORPUSCULAR HEMOGLOBIN 24.8 pg (27.0-33.0); MEAN CORPUSCULAR HGB CONC 31.2 g/dl (32.0-36.5); MEAN CORPUSCULAR VOLUME 79.6 fl (80.0-96.0); PLATELET COUNT, AUTOMATED 484 10^3/uL (150-450); RED CELL DISTRIBUTION WIDTH 18.6 % (11.5-14.5); WHITE BLOOD COUNT 13.9 10^3/uL (4.0-10.0)
[2017-09-18] MEDS: HEPARIN SOD (PORCINE) 5000 UNITS/ML VIAL SC SCH ×3 (06:00→22:00)
[2017-09-18 06:13] LABS: ANION GAP 9 MEQ/L (8-16); BLOOD UREA NITROGEN 9 MG/DL (7-18); CALCIUM LEVEL 9.1 MG/DL (8.8-10.2); CARBON DIOXIDE LEVEL 28 MEQ/L (21-32); CHLORIDE LEVEL 105 MEQ/L (98-107); CREATININE FOR GFR 0.49 MG/DL (0.55-1.02); GLOMERULAR FILTRATION RATE > 60.0 (>45); GLUCOSE, FASTING 90 MG/DL (80-110); POTASSIUM SERUM 3.6 MEQ/L (3.5-5.1); SODIUM LEVEL 142 MEQ/L (136-145)
[2017-09-18] MEDS: PIPERACILLIN/TAZOBACTAM SOD 3.375 GM in APPROPRIATE DILUENT 1 EA IV SCH ×3 (06:44→22:10)
[2017-09-18] MEDS: BREO ELIPTA INH SCH (07:10)
[2017-09-18] MEDS: INCRUSE ELLIPTA 62.5 MCG INH SCH (07:10)
[2017-09-18] MEDS: IPRATROPIUM 0.5MG/ALBUTEROL 2.5MG INH SOL UD 3ML (DUONEB)(J7620) NEB SCH ×3 (07:42→15:26)
[2017-09-18 08:00] VITALS: BP 154/98
[2017-09-18] MEDS ORDERED: INFLUENZA QUADRIVALENT PF VACCINE 0.5ML SYRINGE (90686) IM ONE (09:00)
[2017-09-18] MEDS: THEOPHYLLINE 300 MG PO SCH ×2 (10:40→22:07)
[2017-09-18] MEDS: RIFAMPIN 300 MG PO SCH (10:41)
[2017-09-18] MEDS: ETHAMBUTOL 400MG TAB PO SCH (10:41)
[2017-09-18] MEDS: MEGESTROL SUSP 400 MG/10 ML UDC PO SCH ×2 (10:43→22:08)
[2017-09-18] MEDS: methylPREDNISolone INJ 40 MG/1 ML VIAL (J2920) IV SCH ×2 (10:43→22:09)
[2017-09-18] MEDS: CLOTRIMAZOLE 10 MG TROCHE MT SCH ×3 (10:43→21:00)
[2017-09-18] MEDS: DOCUSATE SODIUM 100 MG CAP PO SCH ×2 (10:44→22:08)
[2017-09-18] MEDS: oxyBUTYnin 5 MG TAB PO SCH ×2 (10:44→22:09)
[2017-09-18] MEDS: OMEPRAZOLE 20 MG CAP PO SCH ×2 (10:44→22:08)
[2017-09-18] MEDS: LORATADINE 10 MG TAB PO SCH (10:45)
[2017-09-18] MEDS: AZITHROMYCIN 250 MG TAB PO SCH (10:45)
[2017-09-18] MEDS: NICOTINE 14 MG/24 HR TRANSDERMAL TD SCH (10:45)
[2017-09-18] MEDS: ONDANSETRON 4 MG ORAL DISINTEGRATING TAB (S0181) SL PRN (10:57)
[2017-09-18] MEDS: PERCOCET 5MG/325MG TAB PO PRN ×3 (10:57→21:45)
[2017-09-18] MEDS: diphenhydrAMINE 25 MG CAP PO PRN (11:08)
--- NOTE | 2017-09-18 11:35 | REP ---
BILATERAL RENAL ULTRASOUND: 09/18/2017 CLINICAL HISTORY: Hydronephrosis on 09/15/[address], none on abdominal CT in April. FINDINGS: The right kidney is 8.9 x 6.6 x 4.9 cm. Cortical echogenicity is slightly hyperechoic to the adjacent liver suggesting some underlying medical renal disease. There is moderate hydronephrosis but no gross hydroureter. There are multiple echogenic stones evident. The largest is laterally in a 9 mm extrarenal pelvis. There are multiple small cysts in the liver, the largest 6 x 5 mm lower pole laterally. Cortical medullary differentiation is poor. No perinephric fluid. Left kidney 7.9 x 4.3 x 3.9 cm. It also has slightly hyperechoic parenchyma. There is no hydronephrosis or hydroureter. There are multiple nonobstructing stones, the largest in the midline 7.5 mm. There are multiple cysts, the largest in the lower pole. There is a parapelvic cyst 2.9 x 2.7 x 2.2 cm. Incidentally noted adjacent to the right kidney is a gallbladder which is filled with bile and with multiple gallbladder polyps evident, the largest 8 mm. The bladder could not be evaluated due to extensive gas. Exam was limited due to patient difficulty tolerating the examination. IMPRESSION: 1. Some renal atrophy with cortical echogenicity increased indicating medical renal disease. There is loss of corticomedullary differentiation, hydronephrosis moderate severity on the right, none on the left. No hydroureter. 2. Nephrolithiasis with largest laterally at 9 mm on the right, 7.5 mm on the left with no obstruction or hydronephrosis on that side. The extrarenal pelvis is seen. I cannot see a definite stone blocking the ureter but that possibility is not excluded. 3. Multiple renal cysts largest on the left. A parapelvic cyst 2.9 x 2.7 x 2.2 cm lower pole. Limited exam by poor patient tolerance. Signed by Srinivas Salazar MD 09/18/2017 06:51 P
--- NOTE | 2017-09-18 12:16 | IPNPDOC ---
Subjective Date Seen The patient was seen on 09/18/17. Subjective Chief Complaint/HPI The patient is a 66-year-old female admitted with a reason for visit of Pneumonia; Sob. Events since last encounter No new complaints this morning. SOb unchanged, no abdominal pain , nausea or vomiting or diarrhea. Objective Physical Examination General Exam: Positive: Alert, Cooperative, No Acute Distress Eye Exam: Positive: PERRLA, Conjunctiva & lids normal, EOMI, Negative: Sclera icteric ENT Exam: Positive: Atraumatic, Mucous membr. moist/pink, Pharynx Normal Neck Exam: Positive: Supple, Negative: JVD, thyromegaly Chest Exam: Positive: Clear to auscultation, Diminished Heart Exam: Positive: Rate Normal, Regular Rhythm, Normal S1, Normal S2, Negative: Murmurs, Rubs Abdomen Exam: Positive: Normal bowel sounds, Soft, Negative: Tenderness, Hepatospenomegaly Extremity Exam: Positive: Normal pulses, Negative: Clubbing, Cyanosis, Edema Skin Exam: Positive: Nl turgor and temperature, Negative: Rash, Breakdown Assessment /Plan Problems (1) Sepsis Status: Acute Problem Text: from pneumonia. will continue with current antibiotics. (2) Pneumonia Status: Acute Problem Text: CAP and chronic MAC infection On ethambutol , rifampicin and azithromycin for MAC. Sputum with staph aureus and strep pneumoniae. will continue with zosyn till sputum culture results are finally back. (3) COPD with asthma Status: Chronic Problem Text: Will continue with Breo and Incruse. with acute exacerbation will continue with nebs and steroids. (4) Chronic respiratory failure with hypoxia Status: Chronic Problem Text: Uses 4 liters of oxygen at home. (5) Severe protein-calorie malnutrition Status: Chronic Problem Text: Patient is cachectic and severely malnourished. Has lost about 50 lbs in the past year. (6) History of MAC infection Status: Acute Problem Text: will continue with home medications. (7) Nephrolithiasis Status: Chronic Problem Text: with h/o multiple ESWLs (8) RACHEL (obstructive sleep apnea) Status: Chronic Problem Text: does not need any treatment now after massive drop in weight this year. (9) Hypertension Status: Chronic (10) GERD (gastroesophageal reflux disease) Status: Chronic (11) History of vertebral compression fracture Status: Chronic Problem Text: due to osteoparesis. (12) Decubital ulcer Status: Acute Problem Text: stage 2 (13) Overactive bladder Status: Chronic Problem Text: continue ditropan (14) Thrush, oral Status: Acute Problem Text: continue clotrimazole (15) Hydronephrosis Status: Acute Problem Text: Right hydronephrosis seen in CT Chest and renal ultrasound new from earlier this year with bilateral nephrolithiasis. No hydroureter. Follows with Neno as outpatient will consult him Plan/VTE VTE Prophylaxis Ordered?: Yes VS, I&O, 24H, Fishbone Vital Signs/I&O Vital Signs Date Time Temp Pulse Resp B/P (MAP) Pulse Ox O2 Delivery O2 Flow Rate FiO2 09/18/17 11:34 Nasal Cannula 4.0 09/18/17 10:57 24 98 09/18/17 05:22 99.3 109 146/86 (106) Laboratory Data 24H LABS Laboratory Tests 2 09/18/17 05:30: Nucleated Red Blood Cells % (auto) 0.0, Anion Gap 9, Glomerular Filtration Rate > 60.0, Blood Urea Nitrogen 9, Creatinine 0.49L, Sodium Level 142, Potassium Level 3.6, Chloride Level 105, Carbon Dioxide Level 28, Calcium Level 9.1 CBC/BMP Laboratory Tests 09/18/17 05:30 Red Blood Count 4.95, Mean Corpuscular Volume 79.6 L, Mean Corpuscular Hemoglobin 24.8 L, Mean Corpuscular Hemoglobin Concent 31.2 L, Red Cell Distribution Width 18.6 H, Calcium Level 9.1 Microbiology Microbiology 09/16/17 Acid Fast Stain - Final, Resulted 09/16/17 Mycobacterial Culture, Resulted Pending 09/16/17 Gram Stain - Final, Resulted 09/16/17 Sputum Culture - Preliminary, Resulted Staphylococcus Aureus Streptococcus Pneumoniae 09/15/17 Influenza Virus Type A Antigen - Final, Complete 09/15/17 Influenza Virus Type B Antigen - Final, Complete RAY GRANT MD Sep 18, 2017 12:16
--- NOTE | 2017-09-18 15:53 | CR ---
DATE OF CONSULTATION: 09/18/2017 The patient was seen at 05:00 p.m. with a medical student. REASON FOR CONSULTATION: Asked to consult by Dr. Cortez for evaluation of possible pneumonia in a patient with known Mycobacterium avium complex (MAC) cavitary pneumonia. HISTORY OF PRESENT ILLNESS: Jennifer is a pleasant 66-year-old female who has seen me for the past three months with Mycobacterium avium complex cavitary pneumonia. The patient for the past two weeks has had increasing shortness of breath. She had increasing cough which was productive of greenish phlegm. She had fever, chills and rigors at home. The patient denied any hemoptysis. She was having increasing shortness of breath with the slightest activity. She was supposed to see me on the day of admission but instead went to the emergency room because of significant shortness of breath. She has been on treatment for Mycobacterium avium complex for the past three months with rifampin 600 mg daily, and ethambutol 400 mg daily and tolerating well. Zithromax was not added to her regimen because she is allergic. The patient was hospitalized for intravenous (IV) antibiotic and was started on IV Zosyn. She also had two falls due to increasing shortness of breath and lightheadedness without loss of consciousness and hurt her right foot. Past medical history is significant for diverticulitis, severe chronic obstructive pulmonary disease (COPD) and asthma, pulmonary cachexia, gastroesophageal reflux disease, recurrent nephrolithiasis, history of obstructive sleep apnea, osteoporosis with compression fractures, tobacco abuse, Mycobacterium avium complex with CT showing multiple pulmonary nodules and a cavitary lesion in April 2017. PET scan showed extensive bilateral hypermetabolic infiltrates, cavitary lesions, scattered pulmonary nodules. She had three sputum that were positive for Mycobacterium avium complex. PAST SURGICAL HISTORY: Multiple lithotripsy, tubal ligation and section. SOCIAL HISTORY: She smokes 6-10 cigarettes a day. Denies alcohol or IV drug use. No recent travel. FAMILY HISTORY: Mother of COPD. Father of heart failure and history of kidney stones. ALLERGIES: 1. Anaphylaxis to QUINOLONES. 2. ZITHROMAX and ERYTHROMYCIN supposedly give her hives, but the patient states that they were mild and she is willing to try them again. 3. MORPHINE. 4. SULFA antibiotics. MEDICATIONS: - Ellipta 62.5 mcg one puff daily - alendronate 70 mg by mouth Mondays - clotrimazole troches 10 mg three times a day as needed for thrush - Colace 100 mg daily - ethambutol 400 mg daily - Breo Ellipta 200/25 one inhalation daily - loratadine 10 mg daily - Megace 400 mg twice a day that I started a month ago; the patient states that it has help with her weight gain - omeprazole 40 mg twice a day - oxybutynin 5 mg twice a day - prednisone 10 mg daily - rifampin 600 mg daily - theophylline 300 mg twice a day - Zosyn 3.375 grams IV every eight hours - nicotine patch daily LABORATORY DATA White count on admission was 17.5; today white count is 13, hemoglobin 11.3, hematocrit 36.6, platelet 431. Sodium 141, potassium 3.9, chloride 103, bicarb 29, BUN 14, creatinine 0.48, glucose 76, calcium 8.4, lactic acid 1.9. ABG pH 7.47, pCO2 42, pO2 101, O2 sat 98%. Influenza A and B was negative. Sputum had gram-positive cocci in chains. Culture is still pending. AFB smear +2 acid fast bacilli. IMAGING: Chest CT shows advanced bullous emphysematous changes with waxing and waning asymmetric density consolidation and cavitation, neoplasm versus infectious etiology needs to be correlated. Mild right-sided hydronephrosis in the partially imaged CT of the chest, which is a change from previous exam. Foot x-ray: No acute fracture or dislocation. Head CT: Minimal volume loss with no acute infarct or hemorrhage Chest x-ray shows diffuse COPD, severe fibrosis, right upper lobe cavitary lesion which has shown much improvement over the last four months but still with thickening of morales of many of these regions in the right upper lobe. PHYSICAL EXAMINATION: GENERAL: On physical exam, she is a frail looking female in no acute distress, anxious to get better and get home. VITAL SIGNS: Temperature is 98.9, pulse 110, respirations 24, blood pressure 141/85, oxygen saturation 96% on four liters nasal cannula. Very emaciated, weight is 30 kg. HEART: Normal S1, S2. No murmurs, rubs or gallops. Distant. LUNGS: Diminished breath sounds with poor air entry. Few crackles at the bases. ABDOMEN: Distended, soft, nontender. EXTREMITIES: No clubbing, cyanosis or edema. Right foot is tender at the first and second metatarsophalangeal (MTP) joints but normal range of motion. HEENT: Oropharynx edentulous with bright red tongue but no white lesions. NECK: Supple. No jugular venous distention (JVD). No bruits. NEUROLOGIC: Exam is intact. IMPRESSION: This is a 66-year-old female with known history of Mycobacterium avium complex cavitary pneumonia on treatment for the past three months. Tolerating medication but the patient is only on two-drug regimen because she is allergic to quinolones and macrolides. The patient has significant disease and should be at least on a three-drug regimen. This admission is related probably to superimposed pneumonia. Gram's stain has gram-positive cocci in chains which are suggestive of pneumococcus. She has responded very well to IV Zosyn. She also has evidence of hydronephrosis on CT and this needs to be further worked up. PLAN: 1. Continue with IV Zosyn until final results of culture. At that point will de-escalate therapy based on results. 2. I discussed with her adding Zithromax to her current regimen for Mycobacterium avium complex. She said she had mild hives in the past but does not recall how long ago. She is willing to try it again and I will try that in the morning along with some Benadryl. 3. Obtain renal ultrasound of further workup of the hydronephrosis. 4. Repeat sputum acid-fast bacillus (AFB) to document clearance of Mycobacterium avium complex. The patient does not need airborne isolation. She had three sputum in the summer all consistent with Mycobacterium avium complex and not MTB.
--- NOTE | 2017-09-18 16:00 | IPN ---
DATE: 09/18/2017 SUBJECTIVE: Jennifer seems to be doing better today. She states her shortness of breath has improved. She has had no fever or chills. Her cough is productive of whitish phlegm. No nausea, vomiting, diarrhea. She does complain of some abdominal pain, mostly bloating. OBJECTIVE: VITAL SIGNS: On physical exam, temperature is 99.3, pulse 109, respirations 92, blood pressure 146/86, oxygen saturation 97% on four liters nasal cannula. HEART: Normal S1, S2, tachycardiac, distant. LUNGS: Diminished, very poor air entry. ABDOMEN: Soft, mildly tender in the left lower quadrant. EXTREMITIES: No edema. Sacrum has a small excoriation from a fall. LABORATORY DATA: White count 13.9, hemoglobin 12.3, hematocrit 39.4, platelets 484. Sodium 142, potassium 3.6, chloride 105, bicarb 28, BUN nine, creatinine 0.49, glucose 90, calcium 9.1. MICROBIOLOGY: Sputum culture was positive for moderate growth of MSSA and heavy growth of Streptococcus pneumoniae. Pneumococcus susceptibilities are still pending. Influenza A and B was negative. AFB smear was positive +2. Culture are pending. IMPRESSION: 1. Pneumococcal pneumonia, possibly methicillin-sensitive Staphylococcus aureus (MSSA) as well. The patient is doing better on IV Zosyn; waiting for results of pneumococcus susceptibility before the patient is de-escalated to oral antibiotics. 2. History of Mycobacterium avium complex cavitary pneumonia on rifampin and ethambutol for the past three months with severe disease and since the patient is being monitored in the hospital, I have started her also on Zithromax which would be part of the treatment but since she has history of severe allergies to quinolones and to macrolide, I had been reluctant to start her on a third medication. Since she has tolerated the previous two, currently she is willing to try Zithromax as well. That would also cover her MSSA and possibly her pneumococcus although there is risk of 50%, resistance. 3. Severe malnutrition, weight loss of 60 pounds in the past year. The patient has been on Megace with improvement of her symptoms as an outpatient. PLAN: Start Zithromax 250 mg daily. Premedicate with Benadryl 25 mg daily. Continue with IV Zosyn until results of pneumococcus susceptibilities are available. She probably could be treated for community-acquired pneumonia for the pneumococcus for 5-7 days at most. The case has been discussed with Dr. Izaguirre and she will keep the patient for the next 48 hours over the weekend, hopefully until Thursday.
[2017-09-18 22:00] VITALS: BP 136/94
[2017-09-19] MEDS: IPRATROPIUM 0.5MG/ALBUTEROL 2.5MG INH SOL UD 3ML (DUONEB)(J7620) NEB PRN ×4 (00:12→19:45)
[2017-09-19] MEDS: PERCOCET 5MG/325MG TAB PO PRN ×4 (03:37→22:01)
[2017-09-19] MEDS: ONDANSETRON 4 MG ORAL DISINTEGRATING TAB (S0181) SL PRN ×2 (03:37→22:01)
[2017-09-19 06:00] VITALS: BP 142/90
[2017-09-19] MEDS: HEPARIN SOD (PORCINE) 5000 UNITS/ML VIAL SC SCH ×3 (06:00→22:00)
[2017-09-19] MEDS: PIPERACILLIN/TAZOBACTAM SOD 3.375 GM in APPROPRIATE DILUENT 1 EA IV SCH ×3 (06:24→22:00)
[2017-09-19 06:26] LABS: MEAN CORPUSCULAR HEMOGLOBIN 24.9 pg (27.0-33.0); MEAN CORPUSCULAR HGB CONC 31.2 g/dl (32.0-36.5); PLATELET COUNT, AUTOMATED 410 10^3/uL (150-450); RED CELL DISTRIBUTION WIDTH 18.6 % (11.5-14.5); WHITE BLOOD COUNT 8.5 10^3/uL (4.0-10.0)
[2017-09-19] MEDS: ACETAMINOPHEN TAB 650MG DOSE (2X325MG) PO PRN ×2 (06:26→17:04)
[2017-09-19 06:43] LABS: ANION GAP 7 MEQ/L (8-16); BLOOD UREA NITROGEN 12 MG/DL (7-18); CALCIUM LEVEL 9.1 MG/DL (8.8-10.2); CARBON DIOXIDE LEVEL 30 MEQ/L (21-32); CHLORIDE LEVEL 102 MEQ/L (98-107); CREATININE FOR GFR 0.36 MG/DL (0.55-1.02); GLOMERULAR FILTRATION RATE > 60.0 (>45); GLUCOSE, FASTING 87 MG/DL (80-110); POTASSIUM SERUM 3.7 MEQ/L (3.5-5.1); SODIUM LEVEL 139 MEQ/L (136-145)
[2017-09-19] MEDS: IPRATROPIUM 0.5MG/ALBUTEROL 2.5MG INH SOL UD 3ML (DUONEB)(J7620) NEB SCH ×3 (07:30→23:36)
[2017-09-19] MEDS: INCRUSE ELLIPTA 62.5 MCG INH SCH (07:30)
[2017-09-19] MEDS: BREO ELIPTA INH SCH (07:30)
[2017-09-19 07:31] VITALS: O2SAT 98
[2017-09-19 07:32] VITALS: O2SAT 98
--- NOTE | 2017-09-19 08:46 | IPNPDOC ---
Subjective Date Seen The patient was seen on 09/19/17. Subjective Chief Complaint/HPI The patient is a 66-year-old female admitted with a reason for visit of Pneumonia; Sob. Events since last encounter Patient feeling much better. SOB is improving , feeling stronger, moving better. Today complains of right lumber region pain , no fever no chills, no chest pain . No abdominal pain , no nausea or vomiting. Complains of constipation. Objective Physical Examination General Exam: Positive: Alert, Cooperative, No Acute Distress Eye Exam: Positive: PERRLA, Conjunctiva & lids normal, EOMI, Negative: Sclera icteric ENT Exam: Positive: Atraumatic, Mucous membr. moist/pink, Pharynx Normal Neck Exam: Positive: Supple, Negative: JVD, thyromegaly Chest Exam: Positive: Clear to auscultation, Diminished Heart Exam: Positive: Rate Normal, Regular Rhythm, Normal S1, Normal S2, Negative: Murmurs, Rubs Abdomen Exam: Positive: Normal bowel sounds, Soft, Negative: Tenderness, Hepatospenomegaly Extremity Exam: Positive: Normal pulses, Negative: Clubbing, Cyanosis, Edema Skin Exam: Positive: Nl turgor and temperature, Negative: Rash, Breakdown Assessment /Plan Problems (1) Sepsis Status: Acute Problem Text: from pneumococcal pneumonia. will continue with zosyn (2) Pneumonia Status: Acute Problem Text: CAP and chronic MAC infection On ethambutol , rifampicin and azithromycin for MAC. Sputum with staph aureus and strep pneumoniae. will continue with zosyn (3) COPD with asthma Status: Chronic Problem Text: Will continue with Breo and Incruse. with acute exacerbation will continue with nebs and steroids. (4) Chronic respiratory failure with hypoxia Status: Chronic Problem Text: Uses 4 liters of oxygen at home. (5) Severe protein-calorie malnutrition Status: Chronic Problem Text: Patient is cachectic and severely malnourished. Has lost about 50 lbs in the past year. (6) History of MAC infection Status: Acute Problem Text: will continue with home medications. (7) Nephrolithiasis Status: Chronic Problem Text: with h/o multiple ESWLs (8) RACHEL (obstructive sleep apnea) Status: Chronic Problem Text: does not need any treatment now after massive drop in weight this year. (9) Hypertension Status: Chronic (10) GERD (gastroesophageal reflux disease) Status: Chronic (11) History of vertebral compression fracture Status: Chronic Problem Text: due to osteoparesis. (12) Decubital ulcer Status: Acute Problem Text: stage 2 (13) Overactive bladder Status: Chronic Problem Text: continue ditropan (14) Thrush, oral Status: Acute Problem Text: continue clotrimazole (15) Hydronephrosis Status: Acute Problem Text: Right hydronephrosis seen in CT Chest and renal ultrasound new from earlier this year with bilateral nephrolithiasis. No hydroureter. Follows with Neno as outpatient will consult him Plan/VTE VTE Prophylaxis Ordered?: Yes VS, I&O, 24H, Fishbone Vital Signs/I&O Vital Signs Date Time Temp Pulse Resp B/P (MAP) Pulse Ox O2 Delivery O2 Flow Rate FiO2 09/19/17 07:32 98 Nasal Cannula 4.0 09/19/17 06:00 100.1 110 22 142/90 (107) I&O- Last 24 Hours up to 6 AM 09/20/17 06:00 Intake Total 30 ml Balance 30 ml Laboratory Data 24H LABS Laboratory Tests 2 09/19/17 05:32: Nucleated Red Blood Cells % (auto) 0.0, Anion Gap 7L, Glomerular Filtration Rate > 60.0, Blood Urea Nitrogen 12, Creatinine 0.36L, Sodium Level 139, Potassium Level 3.7, Chloride Level 102, Carbon Dioxide Level 30, Calcium Level 9.1 CBC/BMP Laboratory Tests 09/19/17 05:32 Red Blood Count 4.49, Mean Corpuscular Volume 80.0, Mean Corpuscular Hemoglobin 24.9 L, Mean Corpuscular Hemoglobin Concent 31.2 L, Red Cell Distribution Width 18.6 H, Calcium Level 9.1 Microbiology Microbiology 09/16/17 Acid Fast Stain - Final, Resulted 09/16/17 Mycobacterial Culture, Resulted Pending 09/16/17 Gram Stain - Final, Complete 09/16/17 Sputum Culture - Final, Complete Staphylococcus Aureus Streptococcus Pneumoniae Stenotrophomonas Maltophilia 09/15/17 Influenza Virus Type A Antigen - Final, Complete 09/15/17 Influenza Virus Type B Antigen - Final, Complete RAY GRANT MD Sep 19, 2017 08:46
[2017-09-19] MEDS: NICOTINE 14 MG/24 HR TRANSDERMAL TD SCH (08:58)
[2017-09-19] MEDS: THEOPHYLLINE 300 MG PO SCH ×2 (08:58→20:01)
[2017-09-19] MEDS: RIFAMPIN 300 MG PO SCH (08:58)
[2017-09-19] MEDS: MEGESTROL SUSP 400 MG/10 ML UDC PO SCH ×2 (08:58→20:00)
[2017-09-19] MEDS: CLOTRIMAZOLE 10 MG TROCHE MT SCH ×3 (08:59→20:06)
[2017-09-19] MEDS: OMEPRAZOLE 20 MG CAP PO SCH ×2 (08:59→20:01)
[2017-09-19] MEDS: SENOKOT S TAB PO SCH ×2 (08:59→20:00)
[2017-09-19] MEDS: LORATADINE 10 MG TAB PO SCH (08:59)
[2017-09-19] MEDS: AZITHROMYCIN 250 MG TAB PO SCH (08:59)
[2017-09-19] MEDS: oxyBUTYnin 5 MG TAB PO SCH ×2 (08:59→20:01)
[2017-09-19] MEDS: MIRALAX *UNIT DOSE* 17GM PACKET PO SCH (08:59)
[2017-09-19] MEDS: BISACODYL 10 MG SUPP PR SCH ×2 (08:59→09:00)
[2017-09-19] MEDS: ETHAMBUTOL 400MG TAB PO SCH (08:59)
[2017-09-19] MEDS: methylPREDNISolone INJ 40 MG/1 ML VIAL (J2920) IV SCH ×2 (08:59→20:00)
[2017-09-19] MEDS ORDERED: LACTOBACILLUS ACIDOPHILUS CAP (BACID) PO SCH (09:00)
[2017-09-19] MEDS: diphenhydrAMINE 25 MG CAP PO PRN (09:41)
[2017-09-19 14:00] VITALS: BP 161/94
[2017-09-19 16:55] VITALS: BP 156/88
[2017-09-19] MEDS: LACTOBACILLUS ACIDOPHILUS CAP (BACID) PO SCH (18:20)
[2017-09-19 22:00] VITALS: BP 145/89
[2017-09-20] MEDS: IPRATROPIUM 0.5MG/ALBUTEROL 2.5MG INH SOL UD 3ML (DUONEB)(J7620) NEB PRN ×2 (02:31→11:12)
[2017-09-20] MEDS: PERCOCET 5MG/325MG TAB PO PRN ×3 (04:45→18:06)
[2017-09-20] MEDS: HEPARIN SOD (PORCINE) 5000 UNITS/ML VIAL SC SCH ×3 (05:22→21:20)
[2017-09-20] MEDS: PIPERACILLIN/TAZOBACTAM SOD 3.375 GM in APPROPRIATE DILUENT 1 EA IV SCH (05:23)
[2017-09-20] MEDS ORDERED: FLEET ENEMA PR ONE (05:45)
[2017-09-20 06:00] VITALS: BP 148/98
[2017-09-20 06:06] LABS: MEAN CORPUSCULAR HEMOGLOBIN 25.2 pg (27.0-33.0); MEAN CORPUSCULAR HGB CONC 30.9 g/dl (32.0-36.5); MEAN CORPUSCULAR VOLUME 81.5 fl (80.0-96.0); PLATELET COUNT, AUTOMATED 405 10^3/uL (150-450); RED CELL DISTRIBUTION WIDTH 18.6 % (11.5-14.5); WHITE BLOOD COUNT 10.3 10^3/uL (4.0-10.0)
[2017-09-20 06:26] LABS: ANION GAP 9 MEQ/L (8-16); BLOOD UREA NITROGEN 12 MG/DL (7-18); CARBON DIOXIDE LEVEL 26 MEQ/L (21-32); CHLORIDE LEVEL 103 MEQ/L (98-107); CREATININE FOR GFR 0.55 MG/DL (0.55-1.02); GLUCOSE, FASTING 90 MG/DL (80-110); POTASSIUM SERUM 3.6 MEQ/L (3.5-5.1); SODIUM LEVEL 138 MEQ/L (136-145)
[2017-09-20 06:27] LABS: GLOMERULAR FILTRATION RATE > 60.0 (>45)
[2017-09-20] MEDS: INCRUSE ELLIPTA 62.5 MCG INH SCH (07:20)
[2017-09-20] MEDS: BREO ELIPTA INH SCH (07:20)
[2017-09-20] MEDS: IPRATROPIUM 0.5MG/ALBUTEROL 2.5MG INH SOL UD 3ML (DUONEB)(J7620) NEB SCH ×3 (08:04→19:39)
[2017-09-20] MEDS: BISACODYL 10 MG SUPP PR SCH (09:08)
[2017-09-20] MEDS: RIFAMPIN 300 MG PO SCH (09:08)
[2017-09-20] MEDS: MEGESTROL SUSP 400 MG/10 ML UDC PO SCH ×2 (09:08→20:07)
[2017-09-20] MEDS: MIRALAX *UNIT DOSE* 17GM PACKET PO SCH (09:08)
[2017-09-20] MEDS: methylPREDNISolone INJ 40 MG/1 ML VIAL (J2920) IV SCH ×2 (09:08→20:07)
[2017-09-20] MEDS: THEOPHYLLINE 300 MG PO SCH ×2 (09:08→20:08)
[2017-09-20] MEDS: LORATADINE 10 MG TAB PO SCH (09:09)
[2017-09-20] MEDS: CLOTRIMAZOLE 10 MG TROCHE MT SCH ×3 (09:09→20:08)
[2017-09-20] MEDS: LACTOBACILLUS ACIDOPHILUS CAP (BACID) PO SCH ×2 (09:09→17:03)
[2017-09-20] MEDS: OMEPRAZOLE 20 MG CAP PO SCH ×2 (09:09→20:08)
[2017-09-20] MEDS: oxyBUTYnin 5 MG TAB PO SCH ×2 (09:09→20:08)
[2017-09-20] MEDS: AZITHROMYCIN 250 MG TAB PO SCH (09:09)
[2017-09-20] MEDS: SENOKOT S TAB PO SCH ×2 (09:09→20:08)
[2017-09-20] MEDS: ETHAMBUTOL 400MG TAB PO SCH (09:09)
[2017-09-20] MEDS: NICOTINE 14 MG/24 HR TRANSDERMAL TD SCH (09:10)
--- NOTE | 2017-09-20 10:01 | IPNPDOC ---
Subjective Date Seen The patient was seen on 09/20/17. Subjective Chief Complaint/HPI The patient is a 66-year-old female admitted with a reason for visit of Pneumonia; Sob. Events since last encounter complains of constipation . Did have 2 small bowel movements yesterday but still feels very full. SOb is better, feeling stronger walking more. Objective Physical Examination General Exam: Positive: Alert, Cooperative, No Acute Distress Eye Exam: Positive: PERRLA, Conjunctiva & lids normal, EOMI, Negative: Sclera icteric ENT Exam: Positive: Atraumatic, Mucous membr. moist/pink, Pharynx Normal Neck Exam: Positive: Supple, Negative: JVD, thyromegaly Chest Exam: Positive: Clear to auscultation, Diminished Heart Exam: Positive: Rate Normal, Regular Rhythm, Normal S1, Normal S2, Negative: Murmurs, Rubs Abdomen Exam: Positive: Normal bowel sounds, Soft, Negative: Tenderness, Hepatospenomegaly Extremity Exam: Positive: Normal pulses, Negative: Clubbing, Cyanosis, Edema Skin Exam: Positive: Nl turgor and temperature, Negative: Rash, Breakdown Assessment /Plan Problems (1) Sepsis Status: Acute Problem Text: from pneumococcal pneumonia. will continue with zosyn (2) Pneumonia Status: Acute Problem Text: CAP and chronic MAC infection On ethambutol , rifampicin and azithromycin for MAC. Sputum with staph aureus and strep pneumoniae. will continue with zosyn (3) COPD with asthma Status: Chronic Problem Text: Will continue with Breo and Incruse. with acute exacerbation will continue with nebs and steroids. (4) Chronic respiratory failure with hypoxia Status: Chronic Problem Text: Uses 4 liters of oxygen at home. (5) Severe protein-calorie malnutrition Status: Chronic Problem Text: Patient is cachectic and severely malnourished. Has lost about 50 lbs in the past year. (6) History of MAC infection Status: Acute Problem Text: will continue with home medications. (7) Nephrolithiasis Status: Chronic Problem Text: with h/o multiple ESWLs (8) RACHEL (obstructive sleep apnea) Status: Chronic Problem Text: does not need any treatment now after massive drop in weight this year. (9) Hypertension Status: Chronic (10) GERD (gastroesophageal reflux disease) Status: Chronic (11) History of vertebral compression fracture Status: Chronic Problem Text: due to osteoparesis. (12) Decubital ulcer Status: Acute Problem Text: stage 2 (13) Overactive bladder Status: Chronic Problem Text: continue ditropan (14) Thrush, oral Status: Acute Problem Text: continue clotrimazole (15) Hydronephrosis Status: Acute Problem Text: Right hydronephrosis seen in CT Chest and renal ultrasound new from earlier this year with bilateral nephrolithiasis. No hydroureter. Follows with Neno as outpatient will consult him Plan/VTE VTE Prophylaxis Ordered?: Yes VS, I&O, 24H, Fishbone Vital Signs/I&O Vital Signs Date Time Temp Pulse Resp B/P (MAP) Pulse Ox O2 Delivery O2 Flow Rate FiO2 09/20/17 06:00 99.7 99 20 148/98 (115) 97 High Flow Cannula 4.0 I&O- Last 24 Hours up to 6 AM 09/21/17 06:00 Intake Total 30 ml Balance 30 ml Laboratory Data 24H LABS Laboratory Tests 2 09/20/17 05:55: Nucleated Red Blood Cells % (auto) 0.0, Anion Gap 9, Glomerular Filtration Rate > 60.0, Blood Urea Nitrogen 12, Creatinine 0.55#, Sodium Level 138, Potassium Level 3.6, Chloride Level 103, Carbon Dioxide Level 26, Calcium Level 9.0 CBC/BMP Laboratory Tests 09/20/17 05:55 Red Blood Count 5.08, Mean Corpuscular Volume 81.5, Mean Corpuscular Hemoglobin 25.2 L, Mean Corpuscular Hemoglobin Concent 30.9 L, Red Cell Distribution Width 18.6 H, Calcium Level 9.0 Microbiology Microbiology 09/16/17 Acid Fast Stain - Final, Resulted 09/16/17 Mycobacterial Culture, Resulted Pending 09/16/17 Gram Stain - Final, Complete 09/16/17 Sputum Culture - Final, Complete Staphylococcus Aureus Streptococcus Pneumoniae Stenotrophomonas Maltophilia 09/15/17 Influenza Virus Type A Antigen - Final, Complete 09/15/17 Influenza Virus Type B Antigen - Final, Complete RAY GRANT MD Sep 20, 2017 10:01
[2017-09-20] MEDS: ONDANSETRON 4 MG ORAL DISINTEGRATING TAB (S0181) SL PRN (10:25)
[2017-09-20] MEDS ORDERED: MAGNESIUM CITRATE 300 ML BTL PO ONE (13:00)
[2017-09-20 14:00] VITALS: BP 144/98
[2017-09-20] MEDS ORDERED: KETOROLAC 30 MG/ML VIAL (J1885) IV ONE (14:15)
[2017-09-20 22:00] VITALS: BP 143/98
[2017-09-21] MEDS: PERCOCET 5MG/325MG TAB PO PRN ×2 (00:22→08:03)
[2017-09-21] MEDS: IPRATROPIUM 0.5MG/ALBUTEROL 2.5MG INH SOL UD 3ML (DUONEB)(J7620) NEB PRN ×2 (00:30→05:23)
[2017-09-21] MEDS: HEPARIN SOD (PORCINE) 5000 UNITS/ML VIAL SC SCH ×2 (05:30→13:24)
[2017-09-21 05:50] LABS: MEAN CORPUSCULAR HEMOGLOBIN 24.6 pg (27.0-33.0); MEAN CORPUSCULAR HGB CONC 30.9 g/dl (32.0-36.5); MEAN CORPUSCULAR VOLUME 79.6 fl (80.0-96.0); PLATELET COUNT, AUTOMATED 432 10^3/uL (150-450); RED CELL DISTRIBUTION WIDTH 18.6 % (11.5-14.5); WHITE BLOOD COUNT 12.1 10^3/uL (4.0-10.0)
[2017-09-21 06:00] VITALS: BP 146/98
[2017-09-21 06:16] LABS: ANION GAP 8 MEQ/L (8-16); BLOOD UREA NITROGEN 22 MG/DL (7-18); CALCIUM LEVEL 9.6 MG/DL (8.8-10.2); CARBON DIOXIDE LEVEL 33 MEQ/L (21-32); CHLORIDE LEVEL 99 MEQ/L (98-107); CREATININE FOR GFR 0.43 MG/DL (0.55-1.02); GLOMERULAR FILTRATION RATE > 60.0 (>45); GLUCOSE, FASTING 78 MG/DL (80-110); POTASSIUM SERUM 4.1 MEQ/L (3.5-5.1); SODIUM LEVEL 140 MEQ/L (136-145)
[2017-09-21] MEDS: BREO ELIPTA INH SCH (07:40)
[2017-09-21] MEDS: INCRUSE ELLIPTA 62.5 MCG INH SCH (07:40)
[2017-09-21] MEDS: IPRATROPIUM 0.5MG/ALBUTEROL 2.5MG INH SOL UD 3ML (DUONEB)(J7620) NEB SCH ×2 (07:41→14:25)
[2017-09-21] MEDS: ETHAMBUTOL 400MG TAB PO SCH (08:01)
[2017-09-21] MEDS: LORATADINE 10 MG TAB PO SCH (08:01)
[2017-09-21] MEDS: MEGESTROL SUSP 400 MG/10 ML UDC PO SCH (08:01)
[2017-09-21] MEDS: CLOTRIMAZOLE 10 MG TROCHE MT SCH (08:01)
[2017-09-21] MEDS: SENOKOT S TAB PO SCH (08:02)
[2017-09-21] MEDS: NICOTINE 14 MG/24 HR TRANSDERMAL TD SCH (08:02)
[2017-09-21] MEDS: BISACODYL 10 MG SUPP PR SCH (08:04)
[2017-09-21] MEDS: LACTOBACILLUS ACIDOPHILUS CAP (BACID) PO SCH (08:06)
[2017-09-21] MEDS: methylPREDNISolone INJ 40 MG/1 ML VIAL (J2920) IV SCH (08:16)
[2017-09-21] MEDS: oxyBUTYnin 5 MG TAB PO SCH (08:17)
[2017-09-21] MEDS: MIRALAX *UNIT DOSE* 17GM PACKET PO SCH (08:17)
[2017-09-21] MEDS: OMEPRAZOLE 20 MG CAP PO SCH (08:17)
[2017-09-21] MEDS: diphenhydrAMINE 25 MG CAP PO PRN (08:17)
[2017-09-21] MEDS: ONDANSETRON 4 MG ORAL DISINTEGRATING TAB (S0181) SL PRN (08:19)
[2017-09-21] MEDS: AZITHROMYCIN 250 MG TAB PO SCH (09:17)
--- NOTE | 2017-09-21 11:26 | IPNPDOC ---
Subjective Date Seen The patient was seen on 09/21/17. Subjective Chief Complaint/HPI The patient is a 66-year-old female admitted with a reason for visit of Pneumonia; Sob. Events since last encounter No complaints this morning. Had 3 bowel movements yesterday and feels better today. no abdominal pain or distension , denies any SOB , had a low grade fever this am. Objective Physical Examination General Exam: Positive: Alert, Cooperative, No Acute Distress Eye Exam: Positive: PERRLA, Conjunctiva & lids normal, EOMI, Negative: Sclera icteric ENT Exam: Positive: Atraumatic, Mucous membr. moist/pink, Pharynx Normal Neck Exam: Positive: Supple, Negative: JVD, thyromegaly Chest Exam: Positive: Clear to auscultation, Diminished Heart Exam: Positive: Rate Normal, Regular Rhythm, Normal S1, Normal S2, Negative: Murmurs, Rubs Abdomen Exam: Positive: Normal bowel sounds, Soft, Negative: Tenderness, Hepatospenomegaly Extremity Exam: Positive: Normal pulses, Negative: Clubbing, Cyanosis, Edema Skin Exam: Positive: Nl turgor and temperature, Negative: Rash, Breakdown Assessment /Plan Problems (1) Sepsis Status: Resolved Problem Text: from pneumococcal pneumonia. finished 5 days of zosyn (2) Pneumonia Status: Resolved Problem Text: CAP and chronic MAC infection On ethambutol , rifampicin and azithromycin for MAC. Sputum with staph aureus and strep pneumoniae. will continue with zosyn (3) COPD with asthma Status: Chronic Problem Text: Will continue with Breo and Incruse. with acute exacerbation will continue with nebs and steroids. (4) Chronic respiratory failure with hypoxia Status: Chronic Problem Text: Uses 4 liters of oxygen at home. (5) Severe protein-calorie malnutrition Status: Chronic Problem Text: Patient is cachectic and severely malnourished. Has lost about 50 lbs in the past year. (6) History of MAC infection Status: Acute Problem Text: will continue with home medications. (7) Nephrolithiasis Status: Chronic Problem Text: with h/o multiple ESWLs (8) RACHEL (obstructive sleep apnea) Status: Chronic Problem Text: does not need any treatment now after massive drop in weight this year. (9) Hypertension Status: Chronic (10) GERD (gastroesophageal reflux disease) Status: Chronic (11) History of vertebral compression fracture Status: Chronic Problem Text: due to osteoparesis. (12) Decubital ulcer Status: Acute Problem Text: stage 2 (13) Overactive bladder Status: Chronic Problem Text: continue ditropan (14) Thrush, oral Status: Acute Problem Text: continue clotrimazole (15) Hydronephrosis Status: Acute Problem Text: Right hydronephrosis seen in CT Chest and renal ultrasound new from earlier this year with bilateral nephrolithiasis. No hydroureter. Follows with Neno as outpatient will consult him Plan/VTE VTE Prophylaxis Ordered?: Yes VS, I&O, 24H, Fishbone Vital Signs/I&O Vital Signs Date Time Temp Pulse Resp B/P (MAP) Pulse Ox O2 Delivery O2 Flow Rate FiO2 09/21/17 08:33 18 Nasal Cannula 09/21/17 08:03 4.0 09/21/17 06:00 99.6 61 146/98 (114) 97 I&O- Last 24 Hours up to 6 AM 09/22/17 06:00 Intake Total 720 ml Balance 720 ml Laboratory Data 24H LABS Laboratory Tests 2 09/21/17 05:23: Nucleated Red Blood Cells % (auto) 0.0, Anion Gap 8, Glomerular Filtration Rate > 60.0, Blood Urea Nitrogen 22#H, Creatinine 0.43L, Sodium Level 140, Potassium Level 4.1, Chloride Level 99, Carbon Dioxide Level 33H, Calcium Level 9.6 CBC/BMP Laboratory Tests 09/21/17 05:23 Red Blood Count 4.91, Mean Corpuscular Volume 79.6 L, Mean Corpuscular Hemoglobin 24.6 L, Mean Corpuscular Hemoglobin Concent 30.9 L, Red Cell Distribution Width 18.6 H, Calcium Level 9.6 Microbiology Microbiology 09/16/17 Acid Fast Stain - Final, Resulted 09/16/17 Mycobacterial Culture, Resulted Pending 09/16/17 Gram Stain - Final, Complete 09/16/17 Sputum Culture - Final, Complete Staphylococcus Aureus Streptococcus Pneumoniae Stenotrophomonas Maltophilia 09/15/17 Influenza Virus Type A Antigen - Final, Complete 09/15/17 Influenza Virus Type B Antigen - Final, Complete RAY GRANT MD Sep 21, 2017 11:26
[2017-09-21] MEDS: RIFAMPIN 300 MG PO SCH (12:08)
[2017-09-21] MEDS: THEOPHYLLINE 300 MG PO SCH (12:09)
[2017-09-21] MEDS ORDERED: DIPH25CA PO (12:17)
[2017-09-21] MEDS ORDERED: AZIT-12 PO (12:17)
[2017-09-21] MEDS ORDERED: PRED10TA2 PO (12:17)
[2017-09-21] MEDS ORDERED: RISATAB3 PO (12:17)
[2017-09-21 14:00] VITALS: BP 147/85
== END 2017-09-21 16:18 | disposition home health service (06) | DRG 720 ==
LOC: M ED 12:51 → M ED INP 17:40 → M MSPAV 09-16 16:27
PROVIDERS: ADMIT Hospitalist; ATTEND Internal Medicine Nephrology
DX: A41.9 Sepsis, unspecified organism (principal); J96.21 Acute and chronic respiratory failure with hypoxia; E43 Unspecified severe protein-calorie malnutrition; J15.211 Pneumonia due to Methicillin susceptible Staphylococcus aureus; J13 Pneumonia due to Streptococcus pneumoniae; B37.0 Candidal stomatitis; L89.152 Pressure ulcer of sacral region, stage 2; E87.2 Acidosis; J44.1 Chronic obstructive pulmonary disease with (acute) exacerbation; N13.2 Hydronephrosis with renal and ureteral calculous obstruction; N32.81 Overactive bladder; I10 Essential (primary) hypertension; K21.9 Gastro-esophageal reflux disease without esophagitis; F17.210 Nicotine dependence, cigarettes, uncomplicated; M80.08XD Age-related osteoporosis with current pathological fracture, vertebra(e), subsequent encounter for fracture with routine healing; Z79.52 Long term (current) use of systemic steroids; Z79.899 Other long term (current) drug therapy; Z88.1 Allergy status to other antibiotic agents; Z88.5 Allergy status to narcotic agent; Z87.442 Personal history of urinary calculi; Z88.2 Allergy status to sulfonamides; Z68.1 Body mass index [BMI] 19.9 or less, adult